=== PATIENT | female | born 1985 | race Caucasian/White ===

== ENCOUNTER → 2020-06-23 | Outpatient (CLI) | payer BC ==
[2020-06-23] VITALS (22 sets, daily range): BP systolic 129–162; BP diastolic 69–101
== END | disposition home or self-care (01) ==
LOC: CARD DIAG 09:53
PROVIDERS: ATTEND Internal Medicine Cardiovascular Disease
DX: R42 Dizziness and giddiness (principal)
CPT/HCPCS: 93660

== ENCOUNTER 2020-11-29 16:18 | Emergency (ER) | payer BC ==
[~2020-11-29] VITALS: Ht 162.6 cm; Wt 80.9 kg
[2020-11-29 16:32] VITALS: BP 144/85
[2020-11-29 17:10] LABS: BASOPHILS # (AUTO) 0.1 X10'3 (0-0.2); BASOPHILS % (AUTO) 0.9 % (0-1); EOSINOPHILS # (AUTO) 0.2 X10'3 (0-0.9); EOSINOPHILS % (AUTO) 2.4 % (0-6); HEMATOCRIT 41.5 % (35.0-45.0); HEMOGLOBIN 14.1 g/dl (12.0-16.0); LYMPHOCYTES # (AUTO) 1.8 X10'3 (1.1-4.8); LYMPHOCYTES % (AUTO) 28.6 % (21-51); MEAN CORPUSCULAR HEMOGLOBIN 30.1 PG (27.0-31.0); MEAN CORPUSCULAR HGB CONC 33.9 g/dL (33.0-36.5); MEAN PLATELET VOLUME 8.9 FL (7.4-10.4); MONOCYTES # (AUTO) 0.5 X10'3 (0-0.9); MONOCYTES % (AUTO) 7.3 % (2-12); NEUTROPHILS # (AUTO) 3.9 X10'3 (1.8-7.7); NEUTROPHILS % (AUTO) 60.8 % (42-75); PLATELET COUNT 229 X10'3 (140-440); RED BLOOD COUNT 4.67 X10'6 (4.20-5.60); RED CELL DISTRIBUTION WIDTH 12.4 % (11.5-14.5); WHITE BLOOD COUNT 6.4 X10'3 (4.5-11.0)
[2020-11-29 17:30] LABS: ALANINE AMINOTRANSFERASE 26 U/L (12-78); ALBUMIN 3.8 G/DL (3.4-5.0); ALKALINE PHOSPHATASE 70 IU/L (46-116); ANION GAP 9 (8-16); ASPARTATE AMINO TRANSFERASE 10 U/L (10-37); BILIRUBIN,TOTAL 0.3 MG/DL (0.1-1.0); BLOOD UREA NITROGEN 15 MG/DL (7-18); BUN/CREATININE RATIO 19.5 (6.6-38.0); CHLORIDE 106 MMOL/L (99-107); CREATININE 0.77 MG/DL (0.40-0.90); GLUCOSE 164 MG/DL (70-104); SODIUM 143 MMOL/L (135-145); TOTAL CARBON DIOXIDE 27.8 MMOL/L (24-32); TOTAL PROTEIN 7.8 G/DL (6.4-8.2); eGFR 85 ML/MIN
[2020-11-29] MEDS ORDERED: potassium Cl 20 mEq SR tablet PO ONE (17:40)
[2020-11-29] MEDS ORDERED: POTA10TA36 PO (17:45)
== END 2020-11-29 18:11 | disposition home or self-care (01) ==
LOC: ER 16:19
DX: I49.3 Ventricular premature depolarization (principal); E87.6 Hypokalemia; R06.89 Other abnormalities of breathing; Z90.49 Acquired absence of other specified parts of digestive tract; Z79.899 Other long term (current) drug therapy
CPT/HCPCS: 36415; 71045; 80053; 83880; 84484; 85025; 93005; 99285

== ENCOUNTER 2022-12-03 22:52 | Emergency (ER) | payer BC ==
[~2022-12-03] VITALS: Ht 162.6 cm; Wt 73.0 kg
[~2022-12-03 22:52] MED LIST: POTA-206 PO
[2022-12-03 23:13] LABS: BASOPHILS # (AUTO) 0.1 X10'3 (0-0.2); BASOPHILS % (AUTO) 0.8 % (0-1); EOSINOPHILS # (AUTO) 0.2 X10'3 (0-0.9); EOSINOPHILS % (AUTO) 2.4 % (0-6); HEMATOCRIT 40.6 % (35.0-45.0); HEMOGLOBIN 13.9 g/dl (12.0-16.0); LYMPHOCYTES # (AUTO) 2.5 X10'3 (1.1-4.8); LYMPHOCYTES % (AUTO) 37.2 % (21-51); MEAN CORPUSCULAR HGB CONC 34.3 g/dL (33.0-36.5); MEAN CORPUSCULAR VOLUME 90.4 FL (78-98); MEAN PLATELET VOLUME 8.6 FL (7.4-10.4); MONOCYTES # (AUTO) 0.7 X10'3 (0-0.9); MONOCYTES % (AUTO) 10.3 % (2-12); NEUTROPHILS # (AUTO) 3.3 X10'3 (1.8-7.7); NEUTROPHILS % (AUTO) 49.3 % (42-75); PLATELET COUNT 252 X10'3 (140-440); RED BLOOD COUNT 4.48 X10'6 (4.20-5.60); RED CELL DISTRIBUTION WIDTH 12.7 % (11.5-14.5); WHITE BLOOD COUNT 6.7 X10'3 (4.5-11.0)
[2022-12-03 23:26] LABS: ALANINE AMINOTRANSFERASE 22 U/L (12-78); ALKALINE PHOSPHATASE 59 IU/L (46-116); ANION GAP 6 (8-16); ASPARTATE AMINO TRANSFERASE 14 U/L (10-37); BILIRUBIN,TOTAL 0.3 MG/DL (0.1-1.0); BLOOD UREA NITROGEN 16 MG/DL (7-18); BUN/CREATININE RATIO 21.3 (6.6-38.0); CALCIUM 9.2 MG/DL (8.5-10.1); CHLORIDE 106 MMOL/L (99-107); CREATININE 0.75 MG/DL (0.40-0.90); GLUCOSE 115 MG/DL (70-104); POTASSIUM 3.2 MMOL/L (3.5-5.1); SODIUM 143 MMOL/L (135-145); TOTAL PROTEIN 7.9 G/DL (6.4-8.2); eGFR 86 ML/MIN
[2022-12-03 23:32] LABS: MAGNESIUM 2.3 MG/DL (1.5-2.4)
[2022-12-04 03:07] VITALS: BP 150/101
[2022-12-04] MEDS ORDERED: potassium Cl 20 mEq SR tablet PO STA (03:26)
[2022-12-04 03:47] LABS: D-DIMER 0.27 MG/L FEU (0-0.50)
== END 2022-12-04 04:17 | disposition home or self-care (01) ==
LOC: ER 22:53
DX: Z90.49 Acquired absence of other specified parts of digestive tract (principal); R07.89 Other chest pain
CPT/HCPCS: 36415; 71046; 80053; 83735; 83880; 84484; 85025; 85379; 93005; 99285